=== PATIENT | female | born 1935 | race Caucasian/White ===

== ENCOUNTER → 2018-05-31 | Outpatient (CLI) | payer MEDICARE, BC ==
[~2018-05-31] MED LIST: AGGRENOX CAPSUL1 CAP PO; ALEVE 220MG220 MG PO; ALLOPURINOL300 MG PO; ASPIRIN 32325 MG/TA1 PO; ASPIRIN 32325 MG/TAB PO; ASPIRIN 81M81 MG/TA2 PO; ATENOLOL25 MG PO; BETAPACE160 MG PO; BUFFERED ASPIR325 M1 PO; CARAFATE 1GM1 G PO; DIAVAN; DIOVAN; DIOVAN HCT 25 M1 TAB PO; DIOVAN PO; DIOVAN/HCT 12.51 TAB PO; FLEETS ENEMA; LORTAB 5/500 501 TAB PO; NAPROSYN500 MG PO; NORCO 325 MG-51 TAB PO; NORVASC 5MG5 MG/TAB PO; PRAVACHOL10 MG PO; PRAVASTATIN; PRILOSEC 20MG20 MG PO; SUPER EPA1 SGL PO; TENORMIN 2525 MG/TAB PO; TYLENOL 325MG325 MG PO; VITA-BEE WITH C1 TAB PO; ZYLOPRIM 300MG300 MG PO; [UNRECOGNIZED DRUG - OTHER] PO
== END ==
LOC: MC.RAD 10:46
DX: Z12.31 Encounter for screening mammogram for malignant neoplasm of breast (principal)

== ENCOUNTER → 2019-05-22 | Outpatient (CLI) | payer MEDICARE, BC | LOC: COL.VAS 13:30 | DX: I65.23 Occlusion and stenosis of bilateral carotid arteries (principal); E04.2 Nontoxic multinodular goiter; R01.1 Cardiac murmur, unspecified ==

== ENCOUNTER → 2019-07-04 | Outpatient (CLI) | payer MEDICARE, BC | LOC: MC.RAD 09:06 | DX: Z12.31 Encounter for screening mammogram for malignant neoplasm of breast (principal) ==

== ENCOUNTER 2020-04-16 13:00 | Outpatient (RCR) | payer MEDICARE, BC | END 2020-05-19 | disposition home or self-care (01) | LOC: WSC | DX: M25.551 Pain in right hip (principal); R26.9 Unspecified abnormalities of gait and mobility ==

== ENCOUNTER → 2020-07-21 | Outpatient (CLI) | payer MEDICARE, BC | LOC: COL.VAS 11:59 | DX: I65.23 Occlusion and stenosis of bilateral carotid arteries (principal); E04.2 Nontoxic multinodular goiter; Z98.62 Peripheral vascular angioplasty status ==

== ENCOUNTER 2023-06-17 07:58 | Emergency (ER) | payer MEDICARE, BC ==
[2023-06-17 08:01] VITALS: TEMP 97.6
[2023-06-17 09:40] VITALS: BP 110/54; PULSE 73
== END 2023-06-17 09:40 | disposition home or self-care (01) ==
LOC: COL.ER 07:58
DX: S09.90XA Unspecified injury of head, initial encounter (principal); W06.XXXA Fall from bed, initial encounter

== ENCOUNTER 2023-07-28 19:41 | Emergency (ER) | payer MEDICARE, BC ==
[2023-07-28 19:49] VITALS: TEMP 98.4
[2023-07-28] MEDS ORDERED: NS 1,000 ML IV ONE ×2 (20:00→21:00)
[2023-07-28 20:13] LABS: BASO # 0.1 K/mm3 (0.0-0.2); BASO % 0.8 % (0.0-2.0); EOS # 0.2 K/mm3 (0.0-0.7); EOS % 1.9 % (0.0-4.0); GRAN # 6.4 K/mm3 (1.4-6.5); GRAN % 71.5 % (42.2-75.2); HEMOGLOBIN 10.3 g/dl (12.5-16.0); LYMPH # 1.6 K/mm3 (1.2-3.4); LYMPH % 17.6 % (20.0-51.0); MEAN CELL VOLUME 100 fl (80.0-100.0); MEAN CORPUSCULAR HEMOGLOBIN 31 pg (27-31); MEAN CORPUSCULAR HGB CONC 31 g/dl (33.0-37.0); MEAN PLATELET VOLUME 8.7 fl (7.4-10.4); MONO # 0.7 K/mm3 (0.1-0.6); MONO % 7.9 % (1.7-9.3); PLATELET COUNT 270 K/mm3 (130-400); RED BLOOD COUNT 3.31 M/mm3 (4.10-5.30); REDCELL DISTRIBUTION WIDTH-CV 13.7 % (11.5-14.5)
[2023-07-28 20:23] LABS: COLLECTION METHOD CATHETER
[2023-07-28 20:28] LABS: ALBUMIN 3.3 gm/dL (3.4-4.8); BILIRUBIN,TOTAL 0.2 mg/dL (0.2-1.2); C-REACTIVE PROTEIN 0.14 mg/dL (0.00-0.50); CALCIUM 9.1 mg/dL (8.4-10.2); CREATININE, serum 1.3 mg/dL (0.57-1.11); POTASSIUM 3.8 mmol/L (3.5-4.5); TOTAL PROTEIN 6.7 gm/dL (6.2-8.1)
[2023-07-28 20:31] LABS: PH 5.5 (5.0-8.5); URINE APPEARANCE CLEAR (CLEAR/HAZY); URINE BLOOD NEGATIVE (NEGATIVE); URINE COLOR YELLOW (YELLOW); URINE GLUCOSE NEGATIVE (NEGATIVE); URINE KETONE NEGATIVE (NEGATIVE); URINE NITRATE NEGATIVE (NEGATIVE); URINE PROTEIN(semi-quant) NEGATIVE (NEGATIVE); URINE UROBILINOGEN 0.2 E.U/dL (0.2-1.0)
[2023-07-28 20:44] LABS: URINE BACTERIA RARE /hpf (NONE SEEN); URINE RBC 0-2 /hpf (0-2)
[2023-07-28 22:40] VITALS: BP 145/61; PULSE 80
== END 2023-07-28 22:40 | disposition home or self-care (01) ==
LOC: COL.ER 19:41
PROVIDERS: Emergency Medicine
DX: R45.1 Restlessness and agitation (principal); I95.9 Hypotension, unspecified; N17.9 Acute kidney failure, unspecified; E86.0 Dehydration; F03.C0 Unspecified dementia, severe, without behavioral disturbance, psychotic disturbance, mood disturbance, and anxiety
CPT/HCPCS: J7030

== ENCOUNTER 2023-10-20 15:29 | Emergency (ER) | payer MEDICARE, BC ==
[~2023-10-20] VITALS: Wt 65.6 kg
[2023-10-20 15:31] VITALS: TEMP 98.8
[2023-10-20 16:26] LABS: BASO # 0.1 K/mm3 (0.0-0.2); BASO % 0.9 % (0.0-2.0); EOS # 0.2 K/mm3 (0.0-0.7); EOS % 2.4 % (0.0-4.0); GRAN # 4.8 K/mm3 (1.4-6.5); GRAN % 73.1 % (42.2-75.2); HEMOGLOBIN 10.3 g/dl (12.5-16.0); LYMPH # 1.1 K/mm3 (1.2-3.4); LYMPH % 15.9 % (20.0-51.0); MEAN CELL VOLUME 100 fl (80.0-100.0); MEAN CORPUSCULAR HEMOGLOBIN 32 pg (27-31); MEAN CORPUSCULAR HGB CONC 32 g/dl (33.0-37.0); MONO # 0.5 K/mm3 (0.1-0.6); MONO % 7.4 % (1.7-9.3); PLATELET COUNT 257 K/mm3 (130-400); RED BLOOD COUNT 3.24 M/mm3 (4.10-5.30); REDCELL DISTRIBUTION WIDTH-CV 14.4 % (11.5-14.5)
[2023-10-20 16:31] LABS: HEMATOCRIT 32.4 % (37.0-47.0)
[2023-10-20 16:38] LABS: BILIRUBIN,TOTAL 0.2 mg/dL (0.2-1.2); CALCIUM 9.3 mg/dL (8.4-10.2); CREATININE, serum 1.05 mg/dL (0.57-1.11); POTASSIUM 4.9 mEq/L (3.5-4.5); TOTAL PROTEIN 6.7 g/dl (6.2-8.1)
[2023-10-20 17:52] VITALS: BP 141/45; PULSE 77
== END 2023-10-20 17:52 | disposition home or self-care (01) ==
LOC: COL.ER 15:29
PROVIDERS: Family Medicine
DX: S51.012A Laceration without foreign body of left elbow, initial encounter (principal); S00.93XA Contusion of unspecified part of head, initial encounter; W19.XXXA Unspecified fall, initial encounter; W22.01XA Walked into wall, initial encounter; Y92.129 Unspecified place in nursing home as the place of occurrence of the external cause